=== PATIENT | female | born 1975 | race African-American/Black ===

== ENCOUNTER 2021-03-04 04:43 | Day surgery (SDC) | payer BC, OTHER ==
[2021-02-28 14:58] VITALS: BMI 23.8
[2021-03-04] MEDS ORDERED: MIDAZOLAM HCL 2 MG/2 ML SINGLE DOSE VIAL ONE (14:49)
[2021-03-04] MEDS ORDERED: PROPOFOL 20 ML ONE ×2 (14:49→15:39)
[2021-03-04] MEDS ORDERED: SODIUM CHLORIDE 0.9% P/F 10 ML VIAL IJ ONE (15:22)
[2021-03-04] MEDS ORDERED: ceFAZolin SODIUM 1 GM VIAL ONE (15:22)
[2021-03-04] MEDS ORDERED: ceFAZolin SODIUM 1 GM VIAL IVPB ONE (15:23)
[2021-03-04] MEDS ORDERED: DEXAMETHASONE SOD PHOSPHATE 4 MG/1 ML VIAL ONE (15:27)
[2021-03-04] MEDS ORDERED: KETOROLAC TROMETHAMINE 30 MG/1 ML VIAL ONE (15:27)
[2021-03-04] MEDS ORDERED: ONDANSETRON 4 MG/2 ML VIAL IVPUSH PRN (16:10)
[2021-03-04] MEDS ORDERED: oxyCODONE HCL 5 MG TABLET PO PRN (16:10)
[2021-03-04] MEDS ORDERED: PROMETHAZINE HCL 25 MG/1 ML VIAL IVPUSH PRN (16:10)
[2021-03-04] MEDS ORDERED: LACTATED RINGERS SOLUTION 1,000 ML IV SCH (16:15)
[2021-03-04] MEDS ORDERED: oxyCODONE HCL 5 MG TABLET ONE (17:43)
[2021-03-04 19:15] VITALS: BP 130/91; PULSE 84; TEMP 97.7
== END 2021-03-04 18:27 | disposition home or self-care (01) ==
LOC: JASU-SURG 04:43
PROVIDERS: ATTEND Obstetrics & Gynecology
PROC: 0UJD8ZZ Inspection of Uterus and Cervix, Via Natural or Artificial Opening Endoscopic (ICD-10-PCS; 2021-03-04)
PROC: 0UB98ZZ Excision of Uterus, Via Natural or Artificial Opening Endoscopic (ICD-10-PCS; principal; 2021-03-04 14:00)
PROC: 0UDB7ZX Extraction of Endometrium, Via Natural or Artificial Opening, Diagnostic (ICD-10-PCS; 2021-03-04 14:00)
DX: N92.1 Excessive and frequent menstruation with irregular cycle (principal); D25.0 Submucous leiomyoma of uterus
CPT/HCPCS: 81025; 88305-TC; 94760